=== PATIENT | female | born 1970 | race American Indian/Alaskan Native ===

== ENCOUNTER 2017-02-03 09:22 | Outpatient (CLI) | payer BC ==
--- NOTE | 2017-02-03 14:27 | Mammography Report ---
BILATERAL DIGITAL SCREENING MAMMOGRAM with CAD: 02/03/17 09:22:00 CLINICAL: Routine screening. COMPARISON:None available. FINDINGS: The breasts are mostly fatty with a few bilateral scattered fibroglandular densities. An oval 7 mm circumscribed right upper outer nodule or lymph node requires additional imaging since there is no definite fatty hilum to confirm that it is a benign lymph node.. No architectural distortion or suspicious calcifications.The left breast is negative. IMPRESSION: Right upper outer nodule or lymph node requiring further workup. BI-RADS CATEGORY: 0 -- Additional Imaging Evaluation Required RECOMMENDATION: Recall for a right breast ultrasound to a determine if there is a benign upper outer lymph node. ACR BI-RADS MAMMOGRAPHIC CODES: 0 = Needs additional imaging evaluation; 1 = Negative; 2 = Benign; 3 = Probably benign; 4 = Suspicious; 5 = Malignant; 6 = Known biopsy-proven malignancy COMMENT: 1. Dense breast tissue, i.e., adenosis, fibrocystic changes, etc., may obscure an underlying neoplasm. 2. Approximately 10% of cancers are not detected with mammography. 3. A negative mammography report should not delay biopsy if a clinically suspicious mass is present. COMMENT: Patient follow-up letters are generated via our [employer] application.
== END 2017-02-03 09:23 | disposition home or self-care (01) ==
LOC: SPVWC 09:22
PROVIDERS: ATTEND Internal Medicine Hematology & Oncology
DX: Z12.31 Encounter for screening mammogram for malignant neoplasm of breast (principal)
CPT/HCPCS: 77067; G0202

== ENCOUNTER 2017-03-22 10:44 | Outpatient (CLI) | payer BC ==
--- NOTE | 2017-03-22 12:03 | Ultrasound Report ---
RIGHT BREAST ULTRASOUND: 03/22/17 10:44:00 CLINICAL: Right upper outer nodule or lymph node on recent mammogram. COMPARISON: 02/03/17 mammogram. FINDINGS: Ultrasound of the upper outer right breast was performed and demonstrated a benign intraparenchymal lymph node at 10 o'clock 7 cm from the nipple measuring 6 x 4 x 6 mm. It has benign morphology with central fat.No mass or shadowing. IMPRESSION: Benign right upper outer intraparenchymal lymph node. BI-RADS 2 - - Benign RECOMMENDATION: Routine mammographic screening in January 2018.
== END 2017-03-22 10:45 | disposition home or self-care (01) ==
LOC: SPVWC 10:44
PROVIDERS: ATTEND Surgery
DX: N63.10 Unspecified lump in the right breast, unspecified quadrant (principal)

== ENCOUNTER 2019-03-27 13:10 | Outpatient (CLI) | payer BC ==
--- NOTE | 2019-03-27 14:05 | Mammography Report ---
DIGITAL SCREENING MAMMOGRAM WITH CAD, 03/27/2019 INDICATION: Routine screening mammography. TECHNIQUE: Digital bilateral 2D mammography was obtained in the craniocaudal and mediolateral obliq ue projections. This examination was interpreted with the benefit of Computer-Aided Detection analysi s. COMPARISON: 02/21/2018 FINDINGS: Breast Density: There are scattered areas of fibroglandular density. There is no evidence of dominant mass, suspicious calcifications or architectural distortion in eithe r breast. IMPRESSION: No mammographic evidence of malignancy. Follow up recommendation: Routine yearly BI-RADS Category 1: Negative. A "normal" or negative report should not discourage follow up or biopsy of a clinically significant f inding. A written summary of these findings will be mailed to the patient. The patient will be entered into a mammography reporting system which will generate a reminder letter for the patient's next appointmen t at the appropriate interval. The [employer] recommends yearly mammograms starting at age 40 and continuing as l arron as a woman is in good health. Breast MRI is recommended for women with an approximate 20-25% or greater lifetime risk of breast cancer, including women with a strong family history of breast or ova silvia cancer or who have been treated for Hodgkin's disease. Signer Name: Emiliano Severino MD Signed: 03/27/2019 2:01 PM Workstation Name: [id number]
== END 2019-03-27 13:11 | disposition home or self-care (01) ==
LOC: SPVWC 13:10
PROVIDERS: ATTEND Surgery
DX: Z12.31 Encounter for screening mammogram for malignant neoplasm of breast (principal)
CPT/HCPCS: 77067

== ENCOUNTER 2020-05-30 10:19 | Outpatient (CLI) | payer BC ==
--- NOTE | 2020-05-30 11:05 | Mammography Report ---
DIGITAL SCREENING MAMMOGRAM WITH CAD, 05/30/2020 CLINICAL INFORMATION / INDICATION: Routine screening mammography. TECHNIQUE: Digital bilateral 2D mammography was obtained in the craniocaudal and mediolateral obliqu e projections. This examination was interpreted with the benefit of Computer-Aided Detection analysis . COMPARISON: 03/27/2019, 02/03/2017 FINDINGS: Breast Density: There are scattered areas of fibroglandular density. No dominant mass, suspicious calcifications, or architectural distortion in either breast. Stable right benign intramammary lymph node. Overall, no interval change in the appearance of the johanna mogram. IMPRESSION: No mammographic evidence of malignancy. Follow up recommendation: Routine yearly BI-RADS Category 2: Benign. A "normal" or negative report should not discourage follow up or biopsy of a clinically significant f inding. A written summary of these findings will be mailed to the patient. The patient will be entered into a mammography reporting system which will generate a reminder letter for the patient's next appointmen t at the appropriate interval. The [employer] recommends yearly mammograms starting at age 40 and continuing as l arron as a woman is in good health. Breast MRI is recommended for women with an approximate 20-25% or greater lifetime risk of breast cancer, including women with a strong family history of breast or ova silvia cancer or who have been treated for Hodgkin's disease. Signer Name: Sabrina Gandhi MD Signed: 05/30/2020 11:01 AM Workstation Name: [id number]
== END 2020-05-30 10:20 | disposition home or self-care (01) ==
LOC: SPVWC 10:19
PROVIDERS: ATTEND Internal Medicine Hematology & Oncology
DX: Z12.31 Encounter for screening mammogram for malignant neoplasm of breast (principal); N64.89 Other specified disorders of breast
CPT/HCPCS: 77067

== ENCOUNTER 2021-06-15 10:55 | Outpatient (CLI) | payer OTHER ==
--- NOTE | 2021-06-16 08:42 | Mammography Report ---
DIGITAL SCREENING MAMMOGRAM WITH CAD, 06/15/2021 CLINICAL INFORMATION / INDICATION: Routine screening mammography. TECHNIQUE: Digital bilateral 2D mammography was obtained in the craniocaudal and mediolateral obliqu e projections. This examination was interpreted with the benefit of Computer-Aided Detection analysis . COMPARISON: 05/30/2020, 03/27/2019, 02/21/2018 FINDINGS: Breast Density: There are scattered areas of fibroglandular density. No dominant mass, suspicious calcifications, or architectural distortion in either breast. Intramammary lymph node is again noted in the right breast. There has been no significant interval ch franchesca. IMPRESSION: No mammographic evidence of malignancy. Follow up recommendation: Routine yearly BI-RADS Category 2: BENIGN. A "normal" or negative report should not discourage follow up or biopsy of a clinically significant f inding. A written summary of these findings will be mailed to the patient. The patient will be entered into a mammography reporting system which will generate a reminder letter for the patient's next appointmen t at the appropriate interval. The [employer] recommends yearly mammograms starting at age 40 and continuing as l arron as a woman is in good health. Breast MRI is recommended for women with an approximate 20-25% or greater lifetime risk of breast cancer, including women with a strong family history of breast or ova silvia cancer or who have been treated for Hodgkin's disease. Signer Name: Kayla Pereira MD Signed: 06/16/2021 8:37 AM Workstation Name: [id number]
== END 2021-06-15 10:56 | disposition home or self-care (01) ==
LOC: SPVWC 10:55
PROVIDERS: ATTEND Internal Medicine Hematology & Oncology
DX: Z12.31 Encounter for screening mammogram for malignant neoplasm of breast (principal)
CPT/HCPCS: 77067